=== PATIENT | male | born 1960 ===

== ENCOUNTER 2017-01-03 20:00 | Emergency (ER) | payer OTHER ==
[2017-01-03] MEDS ORDERED: Epinephrine /Lidocaine HCL 1:100,000/2% 30 ml INJ ONE (20:54)
--- NOTE | 2017-01-03 20:58 | C.PDOC ---
History Of Present Illness 56 y/o male presents to ED status post fall from a tree just prior to arrival. Patient presents with complaint of laceration to left cheek, left elbow pain, and right lower leg pain. Pt denies LOC, headache, nausea, vomiting, new weakness or numbness, visual changes, or other associated symptoms. - HPI Time Seen by Provider: 01/03/17 20:45 Chief Complaint (Nursing): Trauma History Per: Patient History/Exam Limitations: no limitations Injury Occurred (Timing): Just Before Arrival Location Of Injury: Right: Face, Leg, Left: Elbow Recent travel outside of the [place]: No Past Medical History Reviewed: Historical Data, Nursing Documentation, Vital Signs Vital Signs: Last Vital Signs Temp 98.1 F 01/03/17 20:12 Pulse 84 01/03/17 20:12 Resp 18 01/03/17 20:12 BP 116/81 01/03/17 20:12 Pulse Ox 98 01/03/17 23:59 - Medical History PMH: No Chronic Diseases Family History: States: Unknown Family Hx - Social History Hx Alcohol Use: No Hx Substance Use: No - Immunization History Hx Tetanus Toxoid Vaccination: No Hx Influenza Vaccination: No Hx Pneumococcal Vaccination: No Review Of Systems Except As Marked, All Systems Reviewed And Found Negative. Constitutional: Negative for: Fever, Chills Cardiovascular: Negative for: Chest Pain Respiratory: Negative for: Cough, Shortness of Breath, Wheezing Gastrointestinal: Negative for: Nausea, Vomiting Skin: Positive for: Bruising (right lower extremity), Other (laceration left cheek area, abrasions to left elbow) Neurological: Negative for: Weakness, Numbness, Headache, Dizziness Physical Exam - Physical Exam Appears: Non-toxic, No Acute Distress Skin: Warm, Dry, Ecchymosis (right anterior lower leg) Head: Normacephalic, Laceration (3.0 cm lac, through subcutaneous tissue, left zygomatic area) Eye(s): bilateral: Normal Inspection, PERRL, EOMI Ear(s): Bilateral: Normal Nose: Normal Oral Mucosa: Moist Chest: Symmetrical, No Tenderness Cardiovascular: Rhythm Regular Respiratory: Normal Breath Sounds, No Rales, No Rhonchi, No Wheezing Gastrointestinal/Abdominal: Normal Exam, Soft, No Tenderness Back: Normal Inspection, No Vertebral Tenderness, No Paraspinal Tenderness Extremity: Normal ROM, Tenderness (right anterior lower leg, mild), Capillary Refill (< 2 sec. ), No Deformity, Other (several small abrasions left elbow, ROM intact, no deformity or swelling ) Extremity: Bilateral: Normal Color And Temperature Neurological/Psych: Oriented x3, Normal Speech, Normal Cognition, Normal Motor, Normal Sensation ED Course And Treatment O2 Sat by Pulse Oximetry: 98 (RA) Pulse Ox Interpretation: Normal - Other Rad L elbow, R tib fib X-Ray: Interpreted by Me (neg) - CT Scan/US CT Maxillofacial Other Rad Studies (CT/US): Radiology Report Reviewed CT/US Interpretation: FINDINGS: Bones/joints: Mild soft tissue irregularity/ swelling LEFT maxilla. No acute fracture. Soft tissues: Few tiny calcifications or foreign bodies along RIGHT periorbital, oral, LEFT maxillary. regions. Orbits: Unremarkable as visualized. Sinuses: Scattered minimal mucosal thickening. No air-fluid levels. IMPRESSION: 1. No fracture. 2. Incidental/non-acute findings are described above. CT Head Other Rad Studies (CT/US): Radiology Report Reviewed CT/US Interpretation: IMPRESSION: 1. No intracranial hemorrhage. Max/Face Other Rad Studies (CT/US): Radiology Report Reviewed (No fx, + small FB's in wound of L cheek) Progress Note: Motrin given. CT head and maxillofacial scans ordered. Left elbow and right tib/fib x-rays ordered. 2300: L cheek wound cleaned with betadyne solution and anestetized with lido with epi for good effect. Liberally irrigated and digitally explored with forced NS and few small pieces of debri removed. wound edges approxmiated with 5-0 Nylon x 5, then Steri-Strips to reduce wound tension and Bacitracin ointment to the wound edges. Well tolerated , no complications. Medical Decision Making Medical Decision Making: Fall from ladder/tree 2 work L elbow and R tib/fib contusions, no lac/fx's. Max face lac to L cheek now sutured, head CT neg, no cheek fx's. Disposition Doctor Will See Patient In The: Office Counseled Patient/Family Regarding: Studies Performed, Diagnosis - Disposition Referrals: [facility] [Outside] Disposition: HOME/ ROUTINE Disposition Time: 23:59 Condition: GOOD Additional Instructions: no tocas la herida por 2 bradley Lluego llava lijeramente con jabon y agua y Bacitracin ointment/inguento. Regressa en 5 bradley para sacar los puntos. Instructions: Contusion in Adults (DC), Facial Laceration (ED) Print Language: SAMMARINESE - Clinical Impression Clinical Impression: Facial laceration, Contusion of leg, right, Contusion of elbow, left - Scribe Statement The provider has reviewed the documentation as recorded by the Lorna Barclay Provider Attestation: All medical record entries made by the Lorna were at my direction and personally dictated by me. I have reviewed the chart and agree that the record accurately reflects my personal performance of the history, physical exam, medical decision making, and the department course for this patient. I have also personally directed, reviewed, and agree with the discharge instructions and disposition.
[2017-01-03] MEDS ORDERED: Lidocaine 2% w Epi 1:100,000 Inj IJ ONE ×2 (21:27→22:18)
--- NOTE | 2017-01-03 22:06 | CT ---
EXAM: CT Head Without Intravenous Contrast CLINICAL HISTORY: 56 years old, male; Injury or trauma; Fall; Initial encounter; Abrasion; Face and forehead; Additional info: Fall from tree, brief loc TECHNIQUE: Axial computed tomography images of the head/brain without intravenous contrast. This CT exam was performed using one or more of the following dose reduction techniques: automated exposure control, adjustment of the mA and/or kV according to patient size, and/or use of iterative reconstruction technique. COMPARISON: No relevant prior studies available. FINDINGS: Brain: No intracranial hemorrhage. No mass. No edema. Ventricles: No hydrocephalus. Bones/joints: No calvarial fracture. Soft tissues: Small radiopaque foreign body within RIGHT frontal scalp. Mastoid air cells: No mastoid effusion. IMPRESSION: 1. No intracranial hemorrhage. 2. See facial bone CT report for additional details. 3. Incidental/non-acute findings are described above.
--- NOTE | 2017-01-03 22:10 | C.PDOC ---
- HPI Time Seen by Provider: 01/03/17 20:45 Chief Complaint (Nursing): Trauma Past Medical History Vital Signs: Last Vital Signs Temp 98.1 F 01/03/17 20:12 Pulse 84 01/03/17 20:12 Resp 18 01/03/17 20:12 BP 116/81 01/03/17 20:12 Pulse Ox 98 01/03/17 20:12 Family History: States: Unknown Family Hx - Social History Hx Alcohol Use: No Hx Substance Use: No - Immunization History Hx Tetanus Toxoid Vaccination: No Hx Influenza Vaccination: No Hx Pneumococcal Vaccination: No ED Course And Treatment O2 Sat by Pulse Oximetry: 98
--- NOTE | 2017-01-03 22:10 | CT ---
EXAM: CT Maxillofacial Without Intravenous Contrast CLINICAL HISTORY: 56 years old, male; Injury or trauma; Fall; Initial encounter; Abrasion; Head/scalp and nose; Without loss of consciousness; Additional info: L facial contusion/lac, ? FX TECHNIQUE: Axial computed tomography images of the face without intravenous contrast. This CT exam was performed using one or more of the following dose reduction techniques: automated exposure control, adjustment of the mA and/or kV according to patient size, and/or use of iterative reconstruction technique. Coronal and sagittal reformatted images were created and reviewed. COMPARISON: No relevant prior studies available. FINDINGS: Bones/joints: Mild soft tissue irregularity/swelling LEFT maxilla. No acute fracture. Soft tissues: Few tiny calcifications or foreign bodies along RIGHT periorbital, oral, LEFT maxillary regions. Orbits: Unremarkable as visualized. Sinuses: Scattered minimal mucosal thickening. No air-fluid levels. IMPRESSION: 1. No fracture. 2. Incidental/non-acute findings are described above.
[2017-01-03] MEDS ORDERED: Bacitracin 500 Units/gm Oint Foilpak UD ONE (23:28)
[2017-01-04 00:13] VITALS: BP 121/81; PULSE 69; RESP 16; TEMP 97.8; O2SAT 97
--- NOTE | 2017-01-04 07:49 | RAD ---
Left elbow three views History: Contusion. Injury. Comparison: None available. Findings: Punctate rounded radiopaque density seen within the lateral volar soft tissues at the level of the proximal to mid forearm which may represent a small foreign body. Clinical correlation. Bony spurring at the level of the olecranon and to a lesser extent coronoid process. No significant elbow joint effusion. Impression: Punctate rounded radiopaque density seen within the lateral volar soft tissues at the level of the proximal to mid forearm which may represent a small foreign body. Clinical correlation. Bony spurring at the level of the olecranon and to a lesser extent coronoid process. No significant elbow joint effusion. If pain persists, consider MRI.
--- NOTE | 2017-01-04 07:53 | RAD ---
Right tibia and fibula three views History: Fall. Injury. Comparison: None available. Findings: Moderate narrowing of the medial and lateral compartments of the femorotibial joint space with prominent chondrocalcinosis in the lateral compartment of the femorotibial joint space. Question punctate loose osteochondral bodies within the femorotibial joint space near the intercondylar notch. Moderate patellofemoral compartment joint space narrowing with bony spurring noted. No significant suprapatellar joint effusion. No evidence for acute displaced fracture or dislocation. Bony spurring noted at the dorsal aspect of the midfoot. Impression: Moderate narrowing of the medial and lateral compartments of the femorotibial joint space with prominent chondrocalcinosis in the lateral compartment of the femorotibial joint space. Question punctate loose osteochondral bodies within the femorotibial joint space near the intercondylar notch. Moderate patellofemoral compartment joint space narrowing with bony spurring noted. No significant suprapatellar joint effusion. No evidence for acute displaced fracture or dislocation. Bony spurring noted at the dorsal aspect of the midfoot. If pain persists, consider MRI.
== END 2017-01-04 00:15 | disposition home or self-care (01) ==
LOC: C.ER 20:00
DX: S01.81XA Laceration without foreign body of other part of head, initial encounter (principal); S80.11XA Contusion of right lower leg, initial encounter; S50.02XA Contusion of left elbow, initial encounter; W14.XXXA Fall from tree, initial encounter; Y93.89 Activity, other specified; Y92.89 Other specified places as the place of occurrence of the external cause

== ENCOUNTER 2017-01-09 08:37 | Emergency (ER) | payer OTHER ==
[2017-01-09 08:50] VITALS: BP 108/74; PULSE 81; RESP 18; TEMP 98.1; O2SAT 100
--- NOTE | 2017-01-09 09:54 | C.PDOC ---
History Of Present Illness A 56 y/o male who had a mechanical fall 6 days ago and sustained laceration to the left cheek and is here today for suture removal. during his last visit he had an xray done of left elbow to rule out fractures. After review of films there was a questionable FB, however, patient denies laceration to the left elbow and states he only had an abrasion. Patient reports no pain to the elbow and repeated XRAY was taken to confirm whether it was a foreign body or not. Patient denies fever, chills, headache, nausea, vomiting, LOC, or any other complaints. Time Seen by Provider: 01/09/17 09:14 Chief Complaint (Nursing): Suture/Staple Removal History Per: Patient History/Exam Limitations: no limitations Onset/Duration Of Symptoms: Days Ago (6) Current Symptoms Are (Timing): Still Present Location Of Injury: Left: Face (Laceration to the left cheek) Severity: Mild Additional History Per: Patient Past Medical History Reviewed: Historical Data, Nursing Documentation, Vital Signs Vital Signs: Last Vital Signs Temp 98.1 F 01/09/17 08:48 Pulse 81 01/09/17 08:48 Resp 18 01/09/17 10:05 BP 108/74 01/09/17 08:48 Pulse Ox 100 01/09/17 11:13 Family History: States: Unknown Family Hx - Social History Hx Alcohol Use: No Hx Substance Use: No - Immunization History Hx Tetanus Toxoid Vaccination: No Hx Influenza Vaccination: No Hx Pneumococcal Vaccination: No Review Of Systems Except As Marked, All Systems Reviewed And Found Negative. Constitutional: Negative for: Fever, Chills Gastrointestinal: Negative for: Nausea, Vomiting Musculoskeletal: Negative for: Arm Pain (Left elbow pain) Skin: Positive for: Lesions (Laceration to the left cheek), Bruising (Left elbow ) Neurological: Negative for: Headache, Other (LOC) Physical Exam - Physical Exam Appears: Non-toxic, No Acute Distress Skin: Warm, Dry Head: Normacephalic, Laceration (2cm laceration to the mid left cheek with sutures and steri strips applied.) Extremity: Normal ROM, Capillary Refill (<2secs), Other (Small abrasion to the left elbow) Extremity: Bilateral: Normal Color And Temperature Neurological/Psych: Oriented x3, Normal Motor, Normal Sensation, Other (No focal deficit) ED Course And Treatment O2 Sat by Pulse Oximetry: 100 (RA) Pulse Ox Interpretation: Normal Medical Decision Making Medical Decision Making: Impression: A 56 y/o male is here today for suture removal of the left cheek. Plans: -XRAY left elbow -Suture removal -Reassess Area was cleaned and sutures were removed and fresh steri strips were applied to the area. Pt was told to call PMD for follow up for evaluation. Disposition Counseled Patient/Family Regarding: Diagnosis - Disposition Disposition: HOME/ ROUTINE Disposition Time: 09:53 Condition: STABLE Instructions: Stitches Removal (ED) Forms: Gen Discharge Inst Surinamese - POA Present On Arrival: None - Clinical Impression Clinical Impression: Removal of suture - Scribe Statement The provider has reviewed the documentation as recorded by the Scribe Kristan javier All medical record entries made by the Scribe were at my direction and personally dictated by me. I have reviewed the chart and agree that the record accurately reflects my personal performance of the history, physical exam, medical decision making, and the department course for this patient. I have also personally directed, reviewed, and agree with the discharge instructions and disposition.
--- NOTE | 2017-01-09 10:54 | RAD ---
PROCEDURE: Radiographs of the left elbow. HISTORY: r/o FB. see prior exam COMPARISON: No prior. FINDINGS: BONES: Normal. No fracture. JOINTS: Normal. No osteoarthritis. SOFT TISSUES: Normal. JOINT EFFUSION: None. OTHER FINDINGS: None IMPRESSION: Unremarkable radiographs of the left elbow.
== END 2017-01-09 10:08 | disposition home or self-care (01) ==
LOC: C.ER 08:37
DX: Z48.02 Encounter for removal of sutures (principal)